=== PATIENT | male | born 1980 | race Caucasian/White ===

== ENCOUNTER 2020-11-03 19:06 | Emergency (ER) | payer SELFPAY ==
[2020-11-03] MEDS ORDERED: LODINE CAP 300300 MG PO (21:48)
[2020-11-03] MEDS ORDERED: CEPHALEXIN500 MG PO (21:48)
== END 2020-11-03 21:50 | disposition home or self-care (01) ==
LOC: ER1 19:06
DX: L03.113 Cellulitis of right upper limb (principal)
CPT/HCPCS: 73090; 99283

== ENCOUNTER 2021-11-04 09:13 | Emergency (ER) | payer SELFPAY ==
[~2021-11-04 09:13] MED LIST: CEPHALEXIN500 MG PO; LODINE CAP 300300 MG PO
== END 2021-11-04 12:25 | disposition home or self-care (01) ==
LOC: ER1 09:13
DX: U07.1 COVID-19 (principal); J45.909 Unspecified asthma, uncomplicated
CPT/HCPCS: 0240U; 71045; 87081; 87880; 99283